=== PATIENT | female | born 1995 | race Caucasian/White ===

== ENCOUNTER → 2018-05-25 | Outpatient (CLI) | payer SELFPAY ==
--- NOTE | 2018-05-25 14:26 | RADIOLOGY REPORT (SQ) ---
EXAM DESCRIPTION: U/S [id number] TRNABD 1GES W/ODOP COMPLETED DATE/TIME: 05/25/2018 1:40 pm REASON FOR STUDY: ENCTR FOR SUPERVISION OF OTHER NORMAL , 1ST TRIMESTER (Z34.81) Z34.81 EN COUNTER FOR SUPRVSN OF NORMAL , FIRST TRIM COMPARISON: None. TECHNIQUE: Transabdominal static and realtime grayscale images acquired of the pelvis. Additional se lected spectral and color Doppler images recorded. All images stored on PACs. bHCG: Not applicable. CLINICAL DATES: 9 weeks 3 days LIMITATIONS: None. FINDINGS: FETUS: Single Living intrauterine . ULTRASOUND EGA: 9 weeks 5 days ULTRASOUND REGI: 12/23/2018 EFW: Not applicable less than 20 weeks. CRL: 2.85 cm FHR: 169 beats per minute. SURVEY: Too early to assess. AMNIOTIC FLUID: Adequate amount. PLACENTA: Not yet developed due to early gestation. SUBCHORIONIC BLEED: No. SIZE OF BLEED: Not applicable. UTERUS: No masses. No anomalies. CERVICAL LENGTH: 3.1 cm Closed. RIGHT ADNEXA: Ovary not identified due to poor acoustical window. No adnexal free fluid. No adnexal masses. LEFT ADNEXA: Normal ovary with normal vascular flow. No adnexal free fluid. No adnexal masses. FREE FLUID: None. OTHER: No other significant finding. IMPRESSION: LIVING INTRAUTERINE . EGA 9 weeks 5 days Trimester of : First - 0 to 13 weeks. TECHNICAL DOCUMENTATION: JOB ID: [id number] [employer]- All Rights Reserved rev Reading location - IP/workstation name: [email or web address]
== END ==
LOC: RAD 13:01
PROVIDERS: ATTEND Nurse Practitioner
DX: Z34.81 Encounter for supervision of other normal pregnancy, first trimester (principal)
CPT/HCPCS: 76801